=== PATIENT | male | born 1980 | race African-American/Black ===

== ENCOUNTER 2020-11-14 14:06 | Emergency (ER) | payer BC ==
[2020-11-14 14:30] VITALS: TEMP 98; BMI 27.8
[2020-11-14 15:24] LABS: BASO % 0.8 % (0-2.0); EOS % 1.4 % (0-4.5); HEMATOCRIT 41.8 % (35.4-49); HEMOGLOBIN 14.1 GM/dL (11.7-16.9); LYMPH % 25.8 % (8-40); MCH 27.5 pg (25.7-33.7); MCHC 33.8 g/dl (32.0-35.9); MEAN CELL VOLUME 81.4 fl (80-96); MEAN PLT VOLUME 9.2 fl (7.5-11.1); MONO % 7.4 % (3.8-10.2); NEUT % 64.6 % (42.8-82.8); PLATELET COUNT 231 K/MM3 (134-434); RBC 5.14 M/mm3 (4.00-5.60); RDW 13.3 % (11.9-15.9); WHITE BLOOD COUNT 6.1 K/mm3 (4.0-10.0)
[2020-11-14 15:32] LABS: INR 1.2 (0.83-1.09); PROTHROMBIN TIME (PATIENT) 14.4 SEC (9.7-13.0)
[2020-11-14 15:36] LABS: ALBUMIN 4.3 g/dl (3.4-5.0); CALCIUM 9.3 mg/dL (8.5-10.1)
[2020-11-14 15:39] LABS: CREATININE 1.1 mg/dL (0.55-1.3)
[2020-11-14 15:41] LABS: BILIRUBIN,TOTAL 1.3 mg/dL (0.2-1); TOT PROT 7.5 g/dl (6.4-8.2)
[2020-11-14 16:27] VITALS: BP 152/102; PULSE 74
== END 2020-11-14 16:54 | disposition home or self-care (01) ==
LOC: JER 14:06
DX: R10.2 Pelvic and perineal pain (principal)
CPT/HCPCS: 36415; 80053; 85025; 85610; 93005; 93010; 93971; 93971-TC; 99284-25